=== PATIENT | female | born 1950 | race Caucasian/White ===

== ENCOUNTER 2024-08-25 14:25 | Outpatient (CLI) | payer OTHER, MEDICAID, SELFPAY ==
--- NOTE | 2024-08-25 14:34 | MM_ITS ---
WS: [id number] VIEWS: MLO, CC, and ML views both breasts. 3D digital tomosynthesis is also included in this exam. No comparisons. Attempts to obtain prior studies were unsuccessful. Findings: There are scattered areas of fibroglandular density. There is a 2 cm spiculated mass with associated surrounding architectural distortion in the upper outer quadrant of the RIGHT breast at about 11:00 mid depth. There is a stereotactic biopsy marker in the medial anterior RIGHT breast. There is some generalized deformity of the RIGHT breast secondary to prior breast cancer surgery. The LEFT breast is negative. MM/MM diag BI tomosynthesis [id number] Impression: BI-RADS: 5 - Highly suggestive of Malignancy. FOLLOW-UP: US Guided Biopsy Recommended This mammogram was also analyzed by the Computer Aided Detection System R2 Imag e [employer] Machinery Mechanic. These findings and recommendations were discussed by phone with Emily LICEA the primary care provider at 12:45 p.m.. 09/05/2024.
== END 2024-08-25 14:26 | disposition home or self-care (01) ==
PROVIDERS: PCP Nurse Practitioner; Visit Provider Nurse Practitioner
DX: Z85.3 Personal history of malignant neoplasm of breast (principal); R92.323 Mammographic fibroglandular density, bilateral breasts; N63.11 Unspecified lump in the right breast, upper outer quadrant; N64.89 Other specified disorders of breast
CPT/HCPCS: 77062; G0279

== ENCOUNTER 2024-09-21 13:50 | Outpatient (CLI) | payer OTHER, MEDICAID, SELFPAY ==
--- NOTE | 2024-09-21 13:55 | US_ITS ---
WS: [id number] ULTRASOUND-GUIDED RIGHT BREAST BIOPSY HISTORY: ABNORMAL MAMMOGRAM, patient has a history of prior RIGHT breast cancer. There are no available mammograms for review. Multiple attempts at retrieving the outside studies were unsuccessful. There is a spiculated mass in the RIGHT breast which may be a post surgical site but with no prior studies for comparison biopsy was recommended. COMPARISON: None. Procedure, risks and complications are explained to the patient. Medications are reviewed. Consent is obtained. The mass in the RIGHT breast is localized with ultrasound. Spiculated mass localizes to 10:00, 3 cm from the nipple. Skin is cleansed with ChloraPrep and anesthetized with 1% buffered lidocaine. Small dermatome is made. Under sterile conditions mass is biopsied with a 14-gauge Achieve needle. Multiple core biopsies are performed. Material placed in formalin and sent to pathology for review. No complications encountered. Breast tissue marker (MobileOCT ultrasound enhanced ribbon): Single. Patient left the radiology suite with no complications. Patient is instructed to return to [facility] or call with any concerns. US/[place] [id number] IMPRESSION: 1. Uncomplicated core needle biopsy RIGHT breast mass at 10:00. PATHOLOGY: Benign fat with dense fibrocollagenous hyalinized sclerosis. Focal c hanges of fat necrosis. No malignancy. RECOMMENDATION: Diagnostic RIGHT mammogram follow-up in 6 months. Mammographic imaging and pathology are concordant. The spiculated mass noted on mammography most likely represents a chronic surgical site. As there were no p rior studies available biopsy was felt necessary.
== END 2024-09-21 13:51 | disposition home or self-care (01) ==
PROVIDERS: PCP Nurse Practitioner; Visit Provider Nurse Practitioner Family
DX: R92.8 Other abnormal and inconclusive findings on diagnostic imaging of breast (principal); N60.31 Fibrosclerosis of right breast
CPT/HCPCS: 19083; 88305

== ENCOUNTER → 2025-03-02 08:10 | Outpatient (BNVA) | payer OTHER, MEDICAID, SELFPAY | PROVIDERS: Visit Provider Internal Medicine | DX: E05.00 Thyrotoxicosis with diffuse goiter without thyrotoxic crisis or storm (principal) | CPT/HCPCS: 99204 ==

== ENCOUNTER 2025-03-23 13:25 | Outpatient (CLI) | payer MEDICAID, MEDICARE, SELFPAY ==
--- NOTE | 2025-03-23 13:37 | US_ITS ---
WS: [id number] THYROID ULTRASOUND HISTORY: HYPERTHYRIDOISM COMPARISON: None available. Right lobe: 1.8 cm x 1.7 cm x 4.7 cm (w x ap x l). Volume: 6.9 cm3. Normal sized gland. Very heterogeneous gland with several cystic masses identified. Predominantly cystic mass noted in the inferior pole with no increased vascularity. Mass measures 2.6 x 1.5 x 2.4 cm. No solid nodule. Left lobe: 2.8 cm x 2.0 cm x 5.5 cm (w x ap x l). Volume: 14.8 cm3. Enlarged heterogeneous LEFT thyroid. The entire LEFT thyroid is enlarged. Mild diffuse increased vascularity. There are a few small scattered cysts. There is no dominant well-circumscribed nodule. Isthmus: 0.2 cm. US/US thyroid [id number] IMPRESSION: 1. TI-RADS 2; no FNA recommended. 2. Enlarged heterogeneous LEFT thyroid is most likely a goiter.
== END 2025-03-23 13:26 | disposition home or self-care (01) ==
LOC: RAD 13:35
PROVIDERS: PCP Nurse Practitioner Family; Visit Provider Nurse Practitioner Family
DX: E05.90 Thyrotoxicosis, unspecified without thyrotoxic crisis or storm (principal); E04.2 Nontoxic multinodular goiter; E04.9 Nontoxic goiter, unspecified
CPT/HCPCS: 76536

== ENCOUNTER 2025-03-24 21:03 | Emergency (ER) | payer MEDICARE, MEDICAID, SELFPAY ==
[2025-03-24 21:19] VITALS: BP 152/79; PULSE 62; RESP 18; TEMP 37; O2SAT 95
--- NOTE | 2025-03-24 21:36 | CTR_ITS ---
PROCEDURE INFORMATION: Exam: CT Head Without Contrast Exam date and time: 03/24/2025 9:54 PM Age: 74 years old Clinical indication: Altered mental status/memory loss; EMS arrival for AMS. Patient acting very confused. TECHNIQUE: Imaging protocol: Computed tomography of the head without contrast. Radiation optimization: All CT scans at this facility use at least one of these dose optimization techniques: automated exposure control; mA and/or kV adjustment per patient size (includes targeted exams where dose is matched to clinical indication); or iterative reconstruction. COMPARISON: [place] thyroid [id number] 03/23/2025 1:41 PM RADIATION DOSE METRICS: Total DLP (mGy-cm): 1170.58 FINDINGS: Brain: No acute intracranial hemorrhage. No midline shift or mass effect. No acute territorial infarct. Global age-related cerebral atrophy. 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 Cerebral ventricles: No ventriculomegaly. Paranasal sinuses: Visualized sinuses are unremarkable. No fluid levels. Mastoid air cells: Visualized mastoid air cells are well aerated. Bones: Unremarkable. No acute fracture. Soft tissues: Unremarkable. CT/CT head wo con* [id number] IMPRESSION: No acute intracranial hemorrhage. No midline shift or mass effect.
--- NOTE | 2025-03-24 21:36 | XRR_ITS ---
PROCEDURE INFORMATION: Exam: XR Chest Exam date and time: 03/24/2025 9:37 PM Age: 74 years old Clinical indication: EMS arrival for AMS. Patient acting very confused. TECHNIQUE: Imaging protocol: Radiologic exam of the chest. Views: 1 view. COMPARISON: No relevant prior studies available. FINDINGS: Lungs: Unremarkable. No consolidation. Pleural spaces: Unremarkable. No pleural effusion. No pneumothorax. Heart/Mediastinum: Unremarkable. No cardiomegaly. Bones/joints: Unremarkable. XR/XR chest 1V portable [id number] IMPRESSION: No acute findings.
--- NOTE | 2025-03-24 21:38 | W.ED.AMS ---
HPI - Altered Mental Status General: Chief Complaint: Altered Mental Status Stated Complaint: AMS Time Seen by Provider: 03/24/25 21:04 History of Present Illness: Patient is a 74-year-old female who presents with confusion and excessive somnolence. She reports having a thyroid test earlier today at another facility, after which she returned home and fell asleep. She states she slept all day and doesn't know why. The patient appears disoriented, as she is unable to identify her primary care physician and seems confused about her recent history. She denies any associated symptoms including nausea, trouble breathing, pain, or fever. The patient recently moved to [place] and lives with her daughter. She denies taking any new medications, sleep aids, or pain medications that might explain her symptoms. Related Data Home Medications ?Medication ?Instructions ?Recorded ?Confirmed atorvastatin 40 mg tablet mg PO 09/30/24 03/02/25 blood sugar diagnostic ([employer] SolutionsTouch #10 ea 09/30/24 03/02/25 Ultra Test strips) blood-glucose meter (OneTouch #1 ea 09/30/24 03/02/25 Verio Flex Meter) lancets 33 gauge (OneTouch Delica #100 ea 09/30/24 03/02/25 Plus Lancet) lisinopril 20 mg tablet mg PO 09/30/24 03/02/25 meloxicam 15 mg tablet mg PO 03/02/25 03/02/25 nystatin 100,000 unit/gram topical topical 03/02/25 03/02/25 ointment Previous Rx's ?Medication ?Instructions ?Recorded cefdinir 300 mg capsule 300 mg PO BID 7 days #14 caps 03/24/25 Allergies Allergy/AdvReac Type Severity Reaction Status Date / Time bacitracin (From Triple Allergy Unknown Unknown Verified 03/02/25 08:32 Antibiotic) heparin Allergy Unknown Unknown Verified 03/02/25 08:31 neomycin (From Triple Allergy Unknown Unknown Verified 03/02/25 08:32 Antibiotic) polymyxin B (From Triple Allergy Unknown Unknown Verified 03/02/25 08:32 Antibiotic) Review of Systems Narrative: Constitutional: Denies fever. Positive for excessive somnolence. Respiratory: Denies trouble breathing. Gastrointestinal: Denies nausea. Musculoskeletal: Denies pain. Neurological: Presents with confusion and disorientation. All other systems: Unable to assess due to patient's confusion [facility] PFSH: Medical History (Updated 03/24/25 @ 23:16 by Justyn Matias DO) Hyperthyroidism, subclinical Social History Smoking and tobacco/nicotine status: never used tobacco/nicotine Physical Exam Const: COMMON NORMALS: no acute distress and alert GENERAL APPEARANCE: cooperative; not ill appearing and not frail appearing ORIENTATION/CONSCIOUSNESS: Yes oriented to person and Yes oriented to place; not oriented to time HENMT: COMMON NORMALS: normocephalic, atraumatic and Normal external nose present HEAD & SCALP: normocephalic and atraumatic FACE & SINUS: normal facial exam and face symmetric NOSE: Normal external nose present Eye: COMMON NORMALS: Equal, round and reactive pupils present and EOMs intact bilaterally PUPIL: Yes Equal, round and reactive pupils present Neck/C-Spine: GENERAL: Yes trachea midline Chest: CHEST: Yes Symmetrical chest wall rise Resp: COMMON NORMALS: normal respiratory effort, No retractions, No use of accessory muscles and clear to auscultation bilaterally AUSCULTATION: clear to auscultation bilaterally Cardio: COMMON NORMALS: regular rate and regular rhythm RATE: regular rate RHYTHM: regular rhythm GI: COMMON NORMALS: Normal to inspection, nondistended, normoactive bowel sounds present Extremity: COMMON NORMALS: no pedal edema Neuro: JUNAID COMA SCALE: document GCS findings Junaid coma scale eye opening: Spontaneous Brawley coma scale verbal response: Confused Brawley coma scale motor response: Obey commands Junaid coma scale total score: 14 SENSORIUM/ORIENTATION: Yes alert, Yes oriented to person, Yes oriented to place and No oriented to time CRANIAL NERVES: Yes CN normal except as noted COORDINATION/BALANCE: [id number] test normal SPEECH: speech normal SENSORY EXAM: Yes extremities (intact) MOTOR EXAM: Pronator motor function not present COORDINATION: [id number] test normal Psych: COMMON NORMALS: speech normal SPEECH: Yes normal speech Course Vital Signs: Vital signs: Vital Signs Temperature 98.6 F 03/24/25 21:19 Pulse Rate 66 03/24/25 23:29 Respiratory Rate 18 03/24/25 21:19 Blood Pressure 157/67 03/24/25 23:29 Pulse Oximetry 97 03/24/25 23:29 MDM - Altered Mental Status Medical Decision Making 74-year-old female with mild mental status change. She is mildly confused. She is alert. Her vitals are stable. She is afebrile. Her CBC is normal. Potassium is 3.2 and is repleted. Otherwise BMP is nonactionable. Her creatinine is 0.6. Her CRP is 3.5. Lactic acid 1.1. She does have a significant urinary tract infection with greater than 100 whites in her urine with 3+ leukocyte esterase and positive nitrates. She is given a fluid bolus. She is given a gram of Rocephin IV. She has not been vomiting. She should do well on oral antibiotics. There are no signs of sepsis. Her head CT is negative as well as her chest x-ray. Lab Data 03/24/25 21:44 03/24/25 21:44 Radiology Impressions Chest X-Ray 03/24/25 21:36 IMPRESSION: No acute findings. Head CT 03/24/25 21:36 IMPRESSION: No acute intracranial hemorrhage. No midline shift or mass effect. Laboratory Results WBC 8.76 10^3/uL (3.29-11.43) 03/24/25 21:44 RBC 4.61 10^6/uL (3.85-5.65) 03/24/25 21:44 Hgb 13.40 g/dL (11.27-16.99) 03/24/25 21:44 Hct 41.8 % (36-47) 03/24/25 21:44 MCV 90.7 fl (85-98) 03/24/25 21:44 MCH 29.1 pg (27-33) 03/24/25 21:44 MCHC 32.1 g/dL (30-55) 03/24/25 21:44 RDW 14.7 % (12.1-15.1) 03/24/25 21:44 Plt Count 244 10^3/cmm (157-399) 03/24/25 21:44 MPV 9.3 fL (7.4-10.4) 03/24/25 21:44 Neut % (Auto) 52.8 % 03/24/25 21:44 Lymph % (Auto) 36.1 % 03/24/25 21:44 [place] % (Auto) 8.4 % 03/24/25 21:44 Eos % (Auto) 1.8 % 03/24/25 21:44 Baso % (Auto) 0.6 % 03/24/25 21:44 Neut # (Auto) 4.62 10^3/uL (1.8-7.7) 03/24/25 21:44 Lymph # (Auto) 3.2 10^3/uL (0.8-4.8) 03/24/25 21:44 [place] # (Auto) 0.7 10^3/uL (0.2-0.9) 03/24/25 21:44 Eos # (Auto) 0.2 10^3/uL (0.0-0.8) 03/24/25 21:44 Baso # (Auto) 0.1 10^3/uL (0.0-0.1) 03/24/25 21:44 Nucleated RBC % (auto) 0 % 03/24/25 21:44 Nucleated RBCs # 0.0 /100WBC 03/24/25 21:44 Sodium 139 mmol/L (136-145) 03/24/25 21:44 Potassium 3.2 mmol/L (3.5-5.1) L 03/24/25 21:44 Chloride 102 mmol/L (98-107) 03/24/25 21:44 Carbon Dioxide 25 mmol/L (22-29) 03/24/25 21:44 Anion Gap 15.2 (5-19) 03/24/25 21:44 BUN 15 mg/dL (8-23) 03/24/25 21:44 Creatinine 0.6 mg/dL (0.5-0.9) 03/24/25 21:44 GFR Calculation Not Reportable 03/24/25 21:44 Glucose 119 mg/dL (65-115) H 03/24/25 21:44 Calculated Osmolality 290 mOsm/kg (285-295) 03/24/25 21:44 Lactic Acid 1.1 mmol/L (0.5-2.2) 03/24/25 21:44 Calcium 8.8 mg/dL (8.5-10.5) 03/24/25 21:44 Phosphorus 3.1 mg/dL (2.5-4.5) 03/24/25 21:44 Magnesium 1.8 mg/dL (1.7-2.3) 03/24/25 21:44 Total Bilirubin 0.7 mg/dL (0.15-1.2) 03/24/25 21:44 AST 20 U/L (0-32) 03/24/25 21:44 ALT 18 U/L (0-33) 03/24/25 21:44 Alkaline Phosphatase 122 U/L (35-105) H 03/24/25 21:44 C-Reactive Protein 3.5 mg/L (0.0-4.9) 03/24/25 21:44 Total Protein 7.3 g/dL (6.6-8.7) 03/24/25 21:44 Albumin 3.3 g/dL (3.5-5.2) L 03/24/25 21:44 Globulin 4.0 g/dL (1.3-4.6) 03/24/25 21:44 Urine Color Dark yellow (Yellow) A 03/24/25 22:39 Urine Appearance Cloudy (CLEAR) A 03/24/25 22:39 Urine pH 5.5 (5-7) 03/24/25 22:39 Ur Specific Many 1.021 (1.005-1.030) 03/24/25 22:39 Urine Protein Trace (Negative) A 03/24/25 22:39 Urine Glucose (UA) Negative (Normal) 03/24/25 22: Urine Ketones Negative (Negative) 03/24/25: Urine Blood Trace (Negative) A 03/24/25 22:39 Urine Nitrate Positive (Negative) A 03/24/25 22:39 Urine Bilirubin Negative (Negative) 03/24/25: Urine Urobilinogen 1.0 mg/dL (Negative) 03/24/25 22:39 Ur Leukocyte Esterase 3+ (Negative) A 03/24/25 22:39 Urine RBC 0-2 /hpf (0-2) 03/24/25 22:39 Urine WBC >100 /hpf (0-5) H 03/24/25 22:39 Ur Squamous Epith Cells 6-10 /hpf (0-5) 03/24/25 22:39 Amorphous Sediment Not Reportable 03/24/25 22:39 Urine Bacteria 3+ /hpf (NONE) H 03/24/25 22:39 Hyaline Casts 4.11 /lpf 03/24/25 22:39 All radiology interpretation(s) finalized by discharge Discharge Plan Discharge Patient Disposition: Home Clinical Impression: Altered mental status, Acute UTI Condition: Stable Prescriptions: New cefdinir 300 mg capsule 300 mg PO BID 7 Days Qty: 14 0RF No Action atorvastatin 40 mg tablet PO (DME) blood-glucose meter [OneTouch Verio Flex meter] Misc See Rx Instructions .ROUTE .MEDSUPPLY Qty: 1 Rx Instructions: As directed lisinopril 20 mg tablet PO (DME) OneTouch Ultra Test Strip See Rx Instructions .ROUTE .MEDSUPPLY Qty: 10 Rx Instructions: As directed (DME) lancets [OneTouch Delica Plus Lancet] 33 gauge misc See Rx Instructions .ROUTE .MEDSUPPLY Qty: 100 Rx Instructions: As directed nystatin 100,000 unit/gram ointment topical meloxicam 15 mg tablet PO Discharge Orders: Discharge ED (Routine); Ordered 03/24/25 Ordered By: Justyn Matias Referrals: [place], INVESTIGATION SPECIALIST [Primary Care Provider, Nurse Practitioner] - 1-3 days Patient Instructions: Altered Mental Status (ED), Urinary Tract Infection in Older Adults (ED), Opioid Safety, Pain Management, Patient Portal & [place] Instructions Activity Restrictions/Additional Instructions: Antibiotics as directed. Drink plenty of liquids. Return for fever despite 2-3 doses of antibiotics, continued or worsening mental status, vomiting liquids or medications, any other concerning symptoms. Print Language: Danish Coding Level of Care Code ED Neck Band Operator for Sana Gonzalez
[2025-03-24 21:49] LABS: Hematocrit 41.8 % (36-47); Hemoglobin 13.40 g/dL (11.27-16.99); Mean Corpuscular HGB Conc 32.1 g/dL (30-55); Mean Corpuscular Hemoglobin 29.1 pg (27-33); Mean Corpuscular Volume 90.7 fl (85-98); Nucleated Red Blood Cells % 0 %; Platelet Count 244 10^3/cmm (157-399); Red Blood Count 4.61 10^6/uL (3.85-5.65); White Blood Count 8.76 10^3/uL (3.29-11.43)
[2025-03-24 22:10] LABS: Alanine Aminotransferase 18 U/L (0-33); Albumin Level 3.3 g/dL (3.5-5.2); Alkaline Phosphatase 122 U/L (35-105); Anion Gap 15.2 (5-19); Aspartate Amino Transferase 20 U/L (0-32); Blood Urea Nitrogen 15 mg/dL (8-23); Calcium 8.8 mg/dL (8.5-10.5); Carbon Dioxide 25 mmol/L (22-29); Chloride 102 mmol/L (98-107); Globulin 4.0 g/dL (1.3-4.6); Glucose 119 mg/dL (65-115); Lactic Sepsis W/Reflex 1.1 mmol/L (0.5-2.2); Magnesium 1.8 mg/dL (1.7-2.3); Osmolality Calculated 290 mOsm/kg (285-295); Potassium 3.2 mmol/L (3.5-5.1); Sodium 139 mmol/L (136-145); Total Protein 7.3 g/dL (6.6-8.7)
[2025-03-24 22:19] VITALS: BP 140/74; PULSE 55; O2SAT 96
[2025-03-24 22:45] VITALS: BP 140/74; PULSE 62; O2SAT 96
[2025-03-24 22:49] LABS: Glucose Urine UA Negative (Normal); Nitrate Urine Positive (Negative); Specific Gravity, Urine 1.021 (1.005-1.030)
[2025-03-24 22:52] LABS: Add Urine Microscopic? YES
[2025-03-24] MEDS: cefTRIAXone 1,000 mg SDV 1000 MG IVP (23:26)
[2025-03-24 23:29] VITALS: BP 157/67; PULSE 66; O2SAT 97
== END 2025-03-25 02:07 | disposition home or self-care (01) ==
PROVIDERS: Emergency Provider Emergency Medicine; PCP Nurse Practitioner Family
DX: R41.82 Altered mental status, unspecified (principal); N39.0 Urinary tract infection, site not specified
CPT/HCPCS: 36415; 70450; 71045; 80053; 81001; 83605; 83735; 84100; 85025; 86140; 87040; 87077; 87086; 87186; 96361; 96374; 99285; J0696; J7030; J9999